=== PATIENT | female | born 1940 | race Hispanic/Latino ===

== ENCOUNTER 2018-01-20 13:13 | Outpatient (CLI) | payer MEDICARE, OTHER ==
--- NOTE | 2018-01-20 14:56 | Cat Scan Report ---
CT HEAD WITHOUT CONTRAST: HISTORY: Loss of balance. TECHNIQUE: Sequential 2.5mm CT images. COMPARISON: none. FINDINGS: Cerebral Parenchyma: Within normal limits. Cerebellum: Within normal limits. Brainstem: Within normal limits. Ventricles: Normal. Sella: Normal. Extra-axial spaces: Normal. Basal Cisterns: Normal. Intracranial Hemorrhage: None. Midline Shift: None. Calvarium: Normal. Sinuses: Normal. Mastoid Air Cells: Normal. Visualized Orbits: Normal. IMPRESSION: Cranial CT scan within normal limits.
--- NOTE | 2018-01-20 21:00 | XRay Report ---
FINAL REPORT EXAM: XR SPINE CERVICAL 2-3V HISTORY: CERVICAL PAIN ct first TECHNIQUE: AP, lateral, and odontoid views of the cervical spine PRIORS: None. FINDINGS: The vertebral body heights are well maintained. Severe disc space narrowing from C4 through C7 is seen with spurring anteriorly and posteriorly. No prevertebral soft tissue swelling is seen. The odontoid is limited to visualization. There is reversal of the normal cervical curvature centered around C5. There is a grade 1 anterolisthesis of C4 on C5, minimal, likely degenerative. Bilateral hypertrophic facet joint degenerative changes throughout the lower half the cervical spine is seen. IMPRESSION: No acute fracture identified. Significant degenerative disc changes in the lower half the cervical spine with associated reversal of cervical curvature and a minimal, grade 1, anterolisthesis C C4 on C5, likely degenerative.
--- NOTE | 2018-01-21 14:49 | Vascular Lab Report ---
CAROTID DUPLEX STUDY: RIGHT PSVEDV CCA [id number] CCA DIST:[id number] ICA PROX:6922 ICA MID:8422 ICA DIST:5216 ECA: 554 VERT: 47 14 LEFT PSVEDV CCA PROX:9220 CCA DIST:6420 ICA PROX:5918 ICA MID:[id number] ICA DIST:7423 ECA: 6615 VERT: 50 14 REASON FOR EXAM: Loss of balance. COMMENTS ON THE RIGHT: Doppler frequency analysis is consistent with 16 to 49 percent diameter reduction of the internal carotid artery. Eccentric plaque is seen in the bulb. The common carotid artery is patent. The external carotid artery is patent. The vertebral artery has antegrade flow. COMMENTS ON THE LEFT: Doppler frequency analysis is consistent with 16 to 49 percent diameter reduction of the internal carotid artery. Eccentric plaque is identified. The common carotid artery is patent. The external carotid artery is patent. The vertebral artery has antegrade flow. IMPRESSION: Less than 50% diameter reduction in the internal carotid arteries bilaterally. Recommend repeat carotid duplex in 12 months.
== END 2018-01-20 13:14 | disposition home or self-care (01) ==
LOC: CT 13:13
PROVIDERS: ATTEND Internal Medicine
DX: M50.30 Other cervical disc degeneration, unspecified cervical region (principal); R26.89 Other abnormalities of gait and mobility; R53.81 Other malaise; R53.83 Other fatigue
CPT/HCPCS: 70450; 72040; 93880

== ENCOUNTER 2021-04-10 12:56 | Outpatient (CLI) | payer MEDICARE ==
--- NOTE | 2021-04-10 14:56 | Mammography Report ---
BILATERAL DIGITAL SCREENING MAMMOGRAM WITH CAD HISTORY: Screening mammogram. TECHNIQUE: Routine digital mammographic imaging performed. This examination was interpreted with beverly barriga benefit of Computer-aided Detection analysis. COMPARISON: 03/09/2020, 03/08/2019, 03/06/2018. FINDINGS: Breast Density: scattered fibroglandular appearance of the breast tissue. Digital CC and MLO views demonstrate no mammographic evidence of malignancy. Stable mild postsurgica l changes in the left breast and bilateral benign-appearing calcifications. IMPRESSION: No mammographic evidence of malignancy. If the clinical examination remains stable, recommend bilate ral mammogram in approximately one year. BIRADS 2: Benign Finding(s). FURTHER INFORMATION: According to the [employer], yearly mammograms are recommend ed starting at age 40 and continuing as long as a woman is in good health. Clinical Breast Exams shou ld be part of a periodic health exam-about every 3 years for women in their 20s and 30s and every yea r for women 40 and over. Breast self exam is an option for women starting in their 20s. Any breast ch fara noted on a breast self exam should be reported promptly to the patient's healthcare provider. Br east MRI is recommended for women with an approximately 20-25% or greater lifetime risk of breast can cer, including women with a strong family history of breast or ovarian cancer and women who have been treated for Hodgkin's disease. A negative Mammography report should not discourage follow up or biopsy of a clinically significant f inding and/or abnormality. Dense breast tissue may obscure small neoplasms. The patient will be entered into a reminder system with a target due date for the next screening mamm ogram. Signer Name: Ethan Colyb MD Signed: 04/10/2021 2:52 PM Workstation Name: [id number]
== END 2021-04-10 12:57 | disposition home or self-care (01) ==
LOC: SPVWC 12:56
PROVIDERS: ATTEND Surgery
DX: Z12.31 Encounter for screening mammogram for malignant neoplasm of breast (principal); N64.89 Other specified disorders of breast
CPT/HCPCS: 77067

== ENCOUNTER 2021-07-27 07:29 | Day surgery (SDC) | payer MEDICARE, OTHER ==
[2021-07-27] MEDS ORDERED: NITROGLYCERIN 0.4 MG TAB SUBL SL NR (08:37)
[2021-07-27] MEDS ORDERED: METOPROLOL TARTRATE 5 MG/5 ML INJ IV NR (08:37)
[2021-07-27] MEDS ORDERED: ATROPINE 1 MG/ML VIAL IV NR (08:38)
[2021-07-27] MEDS ORDERED: SODIUM CHLORIDE 0.9% 500 ML 500 ML IV SCH (09:00)
[2021-07-27 09:09] LABS: Blood Urea Nitrogen 16 mg/dL (7-17)
[2021-07-27] MEDS ORDERED: ATROPINE 0.1% (1 MG/10 ML) CARDIAC SYRINGE ONE (10:10)
[2021-07-27 10:53] VITALS: BP 117/56
--- NOTE | 2021-07-27 10:53 | Cat Scan Report ---
CTA HEART WITH AND WITHOUT CONTRAST 07/27/2021 9:37 AM TECHNIQUE: Routine ECG-gated coronary CT angiography performed on a 64-channel system. 3-D/MIP reform ats were postprocessed. Note that this exam targets the heart and the entire chest was not imaged. CONTRAST: 100 ml Omnipaque 300 HISTORY: Chest Pain COMPARISONS: none FINDINGS: CARDIAC/CORONARY FINDINGS: Please see cardiology report in this particular case. EXTRACARDIAC/EXTRACORONARY FINDINGS: VISUALIZED LUNGS: There is mild subpleural septal thickening throughout both lower lung zones consist ent with early fibrotic changes or other interstitial disease. No honeycombing, mass or effusion. VISUALIZED MEDIASTINUM: unremarkable VISUALIZED CHEST WALL: unremarkable VISUALIZED UPPER ABDOMEN: unremarkable . IMPRESSION 1. Please see cardiology dictation in this particular case for the cardiac/coronary findings. 2. Mild interstitial lung disease or early fibrotic changes are demonstrated at the lung bases. DISCLAIMER: This is a combined radiology and cardiology interpretation. Cardiology is solely responsible for rep orting of cardiac and coronary findings. Radiology is solely responsible for reporting of the extrac ardiac and extracoronary findings. Signer Name: Arcadio Morrow Jr, MD Signed: 07/27/2021 10:49 AM Workstation Name: [id number]
== END 2021-07-27 11:02 | disposition home or self-care (01) ==
LOC: CATHLABREC 07:29 → CT 07:29 → EDSTATUS 08:45 → CATHLABREC 11:02
PROVIDERS: ATTEND Internal Medicine
DX: R07.9 Chest pain, unspecified (principal); E78.00 Pure hypercholesterolemia, unspecified; J44.9 Chronic obstructive pulmonary disease, unspecified; I25.10 Atherosclerotic heart disease of native coronary artery without angina pectoris; Z79.84 Long term (current) use of oral hypoglycemic drugs; Z79.899 Other long term (current) drug therapy; Z98.890 Other specified postprocedural states; Z88.1 Allergy status to other antibiotic agents
CPT/HCPCS: 36415; 75574; 82565; 82962; 84520; Q9967; J9280; J0461; J7040